=== PATIENT | male | born 1985 | race African-American/Black ===

== ENCOUNTER 2024-09-09 18:04 | Emergency (ER) | payer MEDICAID ==
[~2024-09-09] VITALS: Ht 175.3 cm; Wt 68.0 kg
[2024-09-09 18:40] VITALS: TEMP 98.4
[2024-09-09] MEDS ORDERED: ACETAMINOPHEN ES 500 MG TABLET ONE (18:53)
[2024-09-09] MEDS: ACETAMINOPHEN ES 500 MG TABLET PO ONE (18:58)
[2024-09-09 20:59] VITALS: BP 131/71; O2SAT 100
== END 2024-09-09 21:00 | disposition home or self-care (01) ==
LOC: ER 18:26
DX: S02.2XXA Fracture of nasal bones, initial encounter for closed fracture (principal); J45.909 Unspecified asthma, uncomplicated; R51.9 Headache, unspecified; M54.2 Cervicalgia; Y04.0XXA Assault by unarmed brawl or fight, initial encounter; Y93.89 Activity, other specified; Y92.89 Other specified places as the place of occurrence of the external cause; Y99.8 Other external cause status
CPT/HCPCS: 70450-TC; 70486-TC; 72125-TC